=== PATIENT | male | born 1965 ===

== ENCOUNTER 2017-12-20 04:42 | Day surgery (SDC) | payer OTHER ==
[~2017-12-20 04:42] MED LIST: ALTACE10 MG PO; FORTAMET1000 MG PO; GLIPIZIDE XL5 MG PO; OMEPRAZOLE40 MG PO
== END 2017-12-20 12:20 | disposition home or self-care (01) ==
LOC: CIR.AMB 04:42
DX: K43.0 Incisional hernia with obstruction, without gangrene (principal)

== ENCOUNTER 2017-12-24 22:21 | Emergency (ER) | payer OTHER ==
[2017-12-24] MEDS ORDERED: HIBICLENS118 ML TOP (23:39)
== END 2017-12-25 01:06 | disposition home or self-care (01) ==
LOC: ER 22:21
DX: S30.821A Blister (nonthermal) of abdominal wall, initial encounter (principal); Y83.8 Other surgical procedures as the cause of abnormal reaction of the patient, or of later complication, without mention of misadventure at the time of the procedure; Y92.89 Other specified places as the place of occurrence of the external cause; Y93.89 Activity, other specified; Y99.8 Other external cause status

== ENCOUNTER 2021-07-07 11:56 | Emergency (ER) | payer OTHER ==
[~2021-07-07] VITALS: Ht 172.7 cm; Wt 102.5 kg
[~2021-07-07 11:56] MED LIST changes: +HIBICLENS118 ML TOP
[2021-07-07] MEDS ORDERED: GRALISE600 MG (12:17)
[2021-07-07] MEDS ORDERED: NORVASC10 MG PO (12:17)
[2021-07-07] MEDS ORDERED: FENOFIBRATE150 MG (12:18)
== END 2021-07-07 21:28 | disposition home or self-care (01) ==
LOC: ER 11:56
DX: K57.90 Diverticulosis of intestine, part unspecified, without perforation or abscess without bleeding (principal); Z91.013 Allergy to seafood